=== PATIENT | male | born 1955 | race Caucasian/White ===

== ENCOUNTER 2021-07-17 05:48 | Inpatient (IN) | payer MEDICARE, SELFPAY ==
[2021-07-16 16:06] VITALS: BMI 33.6
[2021-07-17] VITALS (40 sets, daily range): BP systolic 125–168; BP diastolic 74–112; PULSE 90–129; RESP 10–21; TEMP 36.3–37.4; O2SAT 89–96; BMI 33.6
[2021-07-17] MEDS: sodium chloride 0.9% 1,000 ML 30 ML IV (06:30)
--- NOTE | 2021-07-17 06:44 | W.PM.OPSUD ---
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
[2021-07-17] MEDS: midazolam 1 mg/mL INJ 2 mL 2 MG IVP (06:58)
--- NOTE | 2021-07-17 07:44 | ANES.PREANE2 ---
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 Proposed Procedure: Operation Date: 07/17/21 07:00 Proposed Procedures p Neck Dissection [id number] C02.8(Right) - Mateo Ba MD s Direct Laryngoscopy w/ biopsy(Right) - Mateo Ba MD Was Beta Maris taken within 24 hours: N/A Was Clonidine taken within 24 hours: N/A Last intake: Intake Last Liquid Date 07/16/21 Last Liquid Time 19:00 Last Solid Date 07/16/21 Last Solid Time 16:00 Social: Social History: No alcohol and No tobacco Exam: Pre-Anes Outpt Exam: alert, oriented x 3, clear to auscultation bilaterally and regular rate & rhythm Airway: Submandibular: WNL Cervical ROM: WNL MP: 2 Dentition: Full CV/HEM: CV/HEM: CHF and HTN Metabolic: Metabolic: Hyperlipidemia and Morbid obesity Neuropsych: Neuropsych: Anxiety and Depression Anesthetic Plan: ASA status: 3 Anesthesia: General Risk of > 500 ml blood loss (7ml/kg in children): No Meds/Allergies Current Medications: Current Medications Generic Name Dose Route Start Last Admin Trade Name Freq PRN Reason Stop Dose Admin Sodium Chloride 1,000 mls @ 30 ml s/hr 07/17/21 06:00 07/17/21 06:30 Sodium Chloride 0.9% IV 07/18/21 05:59 30 mls/hr .Q24H JESSE Administration Midazolam HCl 2 mg 07/17/21 06:00 07/17/21 06:58 Midazolam 1 Mg/M l Inj 2 Ml IVP 1 mg Q5M PRN Administration Preop Anxiety PFSH Anesthesia PFSH: Medical History CHF (congestive heart failure) HTN (hypertension), benign Hyperlipidemia Leg swelling Seasonal allergies Surgical History S/P shoulder hemiarthroplasty Family History Other CHF (congestive heart failure) Diabetes Stroke Social History Smoking and tobacco status: never smoked Alcohol intake: current Alcohol intake frequency: holidays/special occasions only Data Anesthesia Cardiac Studies: No Data to Display
[2021-07-17] MEDS: clindamycin 600 MG/50 ML PREMIX 100 MG IV ×2 (07:52→18:36)
[2021-07-17] MEDS: EPINEPHrine 1 mg/mL INJ XX (08:32)
[2021-07-17] MEDS: ceFAZolin 1,000 mg SDV 1000 MG IRRIGATION (09:04)
--- NOTE | 2021-07-17 09:05 | SUR.OPER ---
[id number] pt family (yuri) notified of surgery progress
[2021-07-17] MEDS: thrombin 5,000 unit SDV 5000 UNIT XX (10:23)
[2021-07-17] MEDS: neomycin-poly-bacitracin oint 28 gm 1 APPLIC TOPICAL (10:24)
--- NOTE | 2021-07-17 11:24 | SUR.OPER ---
[id number] attempted to contact family, unable to reach
--- NOTE | 2021-07-17 12:19 | P.PCN_ITS ---
PACU note PACU note: VSS, Good respiratory effort, report to COMPUTER CUSTOMER SUPPORT SPECIALIST Post-Anesthesia Exam: awake
--- NOTE | 2021-07-17 12:19 | PM.PACU ---
PACU note PACU note: VSS, Good respiratory effort, report to AREA ATTENDANT Post-Anesthesia Exam: awake
--- NOTE | 2021-07-17 12:22 | P.OP_ITS ---
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 Post-op diagnosis: same Post-op Findings: Exophytic mass of the right mobile tongue Procedure Done: Wide local excision of right mobile tongue lesion Right supraomohyoid neck dissection Direct Laryngoscopy Implants: None Specimens removed/disposition: Right mobile tongue lesion with margins Right neck contents Pathology: Right mobile tongue mass with margins Right neck contents Surgeon: Mateo Ba Contract Administration Specialist: Jenny Newton Anesthesia: General Estimated blood loss (mL): 200 IV fluids (mL): 1,500 Urine output (mL): 300 Complications: None Findings: 2.5 X 2 cm right mobile tongue mass with 4X6 cm final surgical defect Normal right neck findings Condition: stable Disposition: PACU Brief History: 66 yo wm with a h/o a T2 N0 M0 squamous cell carcinoma of the right mobile tongue who desires surgical therapy. Procedure: The patient was identified in the preoperative holding area and was taken to the operating room where he was placed on the operating table in the supine position. Anesthesia was obtained with general endotracheal anesthesia and the table was then turned 180 degrees. The surgical laryngoscope was then advanced on the right oral cavity gutter and under direct vision a systematic inspection was carried out of the patient's oral cavity, oropharynx, hypopharynx, and larynx with no abnormalities identified except as noted above. A bimanual exam was then performed with no other abnormalities noted except as noted above. At this point the laryngoscope was removed and a Denhart retractor was placed in the patient's oral cavity and a sharp towel clamp was placed in the midline of the anterior tongue and was used to retract the tongue to the patient's left exposing the right tongue to the operating surgeon. The right tongue lesion was then excised with a 1 cm margin of normal tissue surrounding the mass with a needlepoint Bovie. Once the right tongue mass was excised, hemostasis was achieved with electrocautery. Margins were taken around the surgical defect thus created and were sent for frozen section analysis which came back as no evidence of malignancy. At this point the area was packed with antibiotic soaked gauze and the patient was then prepped and draped in the usual sterile fashion. The Nirvana nerve monitoring system was placed on the patient's facial nerve and a hockey-stick incision was drawn out on the patient's right neck. The incision was injected local anesthesia and 10 minutes were allowed to pass. The incision was then made in the patient's right neck with a 15 blade and the dissection was carried down to a subplatysmal plane with electrocautery. Subplatysmal flaps were raised superiorly and inferiorly. The dissection proceeded down to the digastric muscle which was then skeletonized with blunt dissection and bipolar cautery. The marginal mandibular nerve was identified and preserved in situ. The right submandibular gland was identified and was then dissected free from the submandibular triangle using blunt dissection and the Nirvana nerve monitoring hemostat and bipolar cautery. The hypoglossal nerve and lingual nerves were identified and preserved in place. Once the submandibular gland was excised the perivascular nodes were removed as well and were sent with the specimen. At this point the dissection proceeded along the anterior border of the sternocleidomastoid muscle which had been previously exposed. The spinal accessory nerve was identified and dissected free - the level 2A and 2B lymph nodes were then dissected free from the surro unding tissues with careful attention to preserving the spinal accessory nerve and the internal jugular vein. The dissection then proceeded to the hypoglossal nerve which was dissected free from the surrounding tissues. The lymph node packet in the area was dissected free from the internal jugular vein and the carotid artery preserving them in place. At this point the dissection proceeded down into the area lateral to the internal jugular vein. This dissection proceeded down along the anterior border of the sternocleidomastoid muscle until the cervical rootlets were identified. The dissection then proceeded anteriorly down to the omohyoid muscle and and was then redirected anteriorly bringing the lymph nodes anteriorly up and over the internal jugular vein. The ansa cervicalis was identified preserved in place. The dissection then proceeded anteriorly removing all lymph nodes in the supraomohyoid space. At this point once the all the lymph nodes were removed, the wound was inspected for hemostasis which was achieved with bipolar cautery. At this point Gelfoam soaked in thrombin was placed in the in the wound as were a round Trevor drain and a flat NIDIA drain. Once the drains were in place and hemostasis had been achieved the wound was closed with interrupted 4-0 Monocryl sutures subcu and a running fast-absorbing gut on the skin. The wound was then cleaned and covered with triple antibiotic ointment. At this point attention was returned to the mouth which was retracted open with a Denhart retractor. The tongue was then retracted again again to the left and the wound the tongue wound was closed with interrupted and running 3-0 Vicryl sutures. Once the wound and the on the tongue wound was closed. The oral cavity was irrigated with a copious amount normal saline and the wound was inspected hemostasis which found to be adequate. Once this was accomplished the retractor was removed from the patient and control of the patient was returned to anesthesia where he underwent an uneventful reversal of anesthesia and extubation and was taken to the recovery room in stable condition. There were no operative or anesthetic complications.
[2021-07-17] MEDS: fentaNYL 50 mcg/mL INJ 2mL IVP ×2 (12:26→12:35)
[2021-07-17] MEDS: HYDROmorphone 1 mg/mL INJ 1 mL 0.5 MG IVP ×6 (13:01→16:25)
[2021-07-17] MEDS: morphine 4 mg/mL SDV 1 mL 2 MG IVP ×3 (13:51→20:53)
--- NOTE | 2021-07-17 14:43 | ANE.PACU2 ---
Inpatient post-anesthesia follow up: Airway intact: Yes Vital signs: Temperature 98.7 F Pulse Rate 102 Respiratory Rate 17 Blood Pressure 150/96 Pulse Oximetry 95 Oxygen Delivery Me thod Nasal Cannula Oxygen Flow Rate 2 Fraction of Inspir ed Oxygen Hydration adequate: Yes Nausea and vomiting: No Pain level: 3 Mental status: Baseline
--- NOTE | 2021-07-17 14:44 | PC.NURSE ---
Patient stated that he was feeling a lot better and declined anymore pain medication at this time.
--- NOTE | 2021-07-17 15:56 | PC.NURSE ---
Report given to PRANEETH Cooper.
--- NOTE | 2021-07-17 17:31 | P.PN_ITS ---
Subjective Subjective: Interval history: 66 yo wm who is night of surgery s/p WLE of a right tongue T2 N0 M0 SCCA with right supraomohyoid neck dissection. The patient reports that he is doing well, and has no c/o. He has been able to drink water without difficulty since surgery. The patient has moderate pain that seems to be well controlled at the present time. Vitals/I&O/Wt Last Vital Signs Temp 99.4 F 07/17/21 17:15 Pulse 104 H 07/17/21 17:15 Resp 17 07/17/21 17:15 BP 141/94 07/17/21 17:15 Pulse Ox 94 07/17/21 17:15 07/17/21 07/17/21 07/17/21 06:59 14:59 22:59 Intake Total 550 / 550 280 / 830 Output Total 800 / 800 Balance -250 / -250 280 / 30 Weight last 48 hrs Weight 112.491 kg Physical Exam Const: COMMON NORMALS: no acute distress and patient oriented x3 HENMT: COMMON NORMALS: normocephalic, atraumatic, external ears normal and Normal external nose present HEAD & SCALP: normocephalic and atraumatic FACE & SINUS: normal facial exam NOSE: Normal external nose present EXTERNAL EAR: Yes external ears normal TEETH & GINGIVA: Yes poor dentition and Yes other (The right tongue wound is intact and the patient's tongue is mobile.) Eye: COMMON NORMALS: EOMs intact bilaterally, conjunctivae normal and no scleral icterus CONJUNCTIVA: Yes conjunctivae normal Neck/C-Spine: COMMON NORMALS: no lymphadenopathy and supple GENERAL: Yes other (The patient's right neck wound is clean, intact, and without swelling.) Chest: COMMONS NORMALS: normal inspection of the chest and normal palpation of entire chest wall Resp: COMMON NORMALS: normal respiratory effort and clear to auscultation bilaterally AUSCULTATION: clear to auscultation bilaterally Cardio: COMMON NORMALS: regular rate, regular rhythm and No murmurs present (Cardio) RATE: regular rate RHYTHM: regular rhythm GI: COMMON NORMALS: Normal to inspection, nondistended, normoactive bowel sounds present and Soft to palpation PALPATION: Yes Soft to palpation Extremity: COMMON NORMALS: normal to inspection and full ROM Neuro: COMMON NORMALS: patient oriented x3, CN's II-XII intact bilaterally and moves all extremities Psych: COMMON NORMALS: mental status grossly normal and Normal thought process present THOUGHT PROCESS: Normal thought process present Urinary Catheter Management^: Pakrer: Cath Placed During This Visit: yes, but has since been removed by the nurse Urinary Catheter Date of Insertion: 07/17/21 Urinary Catheter Time of Insertion: 07:45 Date Urinary Catheter Removed: 07/17/21 Time Urinary Catheter Discontinued: 13:00 A&P Additional A&P Information Impression: 66 yo wm who is night of surgery s/p WLE and right SOHND for a T2 N0 M0 SCCA of the right tongue - the patient is doing well and is able to swallow water. Plan: - Pain control - Post op prophylactic antibiotics - Advance diet tomorrow - Continue closed suction drainage - SCDs - Anticipate d/c in 1-2 days - the patient must be able to take food and liquids by mouth prior to d/c Attestations Medical Necessity Statement*: The patient requires inpatient care until he is able to eat well. Coding Level of Care Code Acute Lead Enterprise Architect for Aster Woodard
[2021-07-17] MEDS: famotidine 20 mg/2 mL INJ IVP (18:36)
[2021-07-17] MEDS: docusate sodium 100 mg Capsule PO (18:36)
[2021-07-17] MEDS: FUROsemide 40 mg Tablet PO (18:37)
[2021-07-17] MEDS: lactated ringers 1,000 ML 125 ML IV (18:37)
[2021-07-17] MEDS: HYDROcodone-acetaminophen 5-325 mg Tablet 1 TAB PO (18:48)
[2021-07-17] MEDS: bacitracin ointment 28 gm TOPICAL (20:46)
[2021-07-17] MEDS: gabapentin 300 mg Capsule 600 MG PO (20:47)
[2021-07-17] MEDS: diphenhydrAMINE 50 mg/mL SDV 1mL 12.5 MG IVP (22:23)
[2021-07-18] VITALS (7 sets, daily range): BP systolic 123–161; BP diastolic 70–97; PULSE 75–94; RESP 16–19; TEMP 36.5–37.2; O2SAT 91–98
[2021-07-18] MEDS: HYDROcodone-acetaminophen 5-325 mg Tablet 1 TAB PO ×3 (01:54→15:34)
[2021-07-18] MEDS: clindamycin 600 MG/50 ML PREMIX 100 MG IV (01:54)
[2021-07-18] MEDS: lactated ringers 1,000 ML 125 ML IV (01:54)
--- NOTE | 2021-07-18 04:17 | PC.NURSE ---
Dr Ba rounded at this time. verbal orders for pt to have patricia drains x2 connected back to compressed bulb suction and taken off continuous wall suctions.
--- NOTE | 2021-07-18 04:35 | PM.PN ---
Subjective Subjective: Interval history: 66 yo wm who is POD #1 s/p Wide Local Excision (WLE) with Right neck supraomohyoid neck dissection (SOHND) for a T2 N0 M0 SCCA of the right mobile tongue. The patient reports that he is having some pain, but it is well controlled with his current pain regimen. He has been able to swallow water without difficulty and is o/w without c/o. Vitals/I&O/Wt Last Vital Signs Temp 97.7 F 07/18/21 04:14 Pulse 94 07/18/21 04:14 Resp 19 H 07/18/21 04:14 BP 123/83 07/18/21 04:14 Pulse Ox 93 07/18/21 04:14 07/17/21 07/17/21 07/18/21 14:59 22:59 06:59 Intake Total 550 / 550 330 / 880 1440.417 / 2320.417 Output Total 800 / 800 500 / 1300 1000 / 2300 Balance -250 / -250 -170 / -420 440.417 / 20.417 Weight last 48 hrs Weight 112.491 kg Weight 112.491 kg Physical Exam Const: COMMON NORMALS: no acute distress, patient oriented x3, healthy appearing and alert HENMT: COMMON NORMALS: normocephalic, atraumatic, external ears normal and Normal external nose present HEAD & SCALP: normocephalic and atraumatic FACE & SINUS: normal facial exam NOSE: Normal external nose present EXTERNAL EAR: Yes external ears normal TEETH & GINGIVA: Yes other (The patient's tongue wound is intact.) Eye: COMMON NORMALS: Equal, round and reactive pupils present, EOMs intact bilaterally and no scleral icterus PUPIL: Yes Equal, round and reactive pupils present Neck/C-Spine: COMMON NORMALS: full ROM and no lymphadenopathy GENERAL: Yes other (The right neck wound is intact without swelling or erythema.) Resp: COMMON NORMALS: normal respiratory effort and clear to auscultation bilaterally AUSCULTATION: clear to auscultation bilaterally Cardio: COMMON NORMALS: regular rate, regular rhythm and No murmurs present (Cardio) RATE: regular rate RHYTHM: regular rhythm GI: COMMON NORMALS: Normal to inspection, nondistended, normoactive bowel sounds present and Soft to palpation PALPATION: Yes Soft to palpation Extremity: COMMON NORMALS: normal to inspection Neuro: COMMON NORMALS: patient oriented x3 and CN's II-XII intact bilaterally SENSORIUM/ORIENTATION: Yes alert Psych: COMMON NORMALS: mental status grossly normal Urinary Catheter Management^: Parker: Cath Placed During This Visit: yes, but has since been removed by the nurse Urinary Catheter Date of Insertion: 07/17/21 Urinary Catheter Time of Insertion: 07:45 Date Urinary Catheter Removed: 07/17/21 Time Urinary Catheter Discontinued: 13:00 A&P Additional A&P Information Impression: 66 yo wm with a h/o a T2 N0 M0 SCCA of the right mobile tongue who is doing well s/p WLE with SOHND Plan: - Advance diet - Ambulate TID - Convert drains to bulb suction - Pain control - Anticipate d/c today or tomorrow depending on the above Attestations Medical Necessity Statement*: The patient requires inpatient care until he able to eat by mouth Coding Level of Care Code Acute Order To Delivery Supervisor for Aster Woodard
--- NOTE | 2021-07-18 04:56 | PC.NURSE ---
pt ambulated 975 ft total with SB assistance after Dr. Ba rounded. pt tolerated well.
[2021-07-18] MEDS: morphine 4 mg/mL SDV 1 mL 2 MG IVP (05:50)
[2021-07-18] MEDS: famotidine 20 mg/2 mL INJ IVP (06:06)
[2021-07-18] MEDS: docusate sodium 100 mg Capsule PO ×2 (09:03→18:10)
[2021-07-18] MEDS: atorvastatin 40 mg Tablet 20 MG PO (09:03)
[2021-07-18] MEDS: losartan 50 mg Tablet PO (09:03)
[2021-07-18] MEDS: gabapentin 300 mg Capsule 600 MG PO ×2 (09:04→15:34)
[2021-07-18] MEDS: fluoxetine 20 mg Capsule 40 MG PO (09:04)
[2021-07-18] MEDS: spironolactone 25 mg Tablet PO (09:04)
[2021-07-18] MEDS: bacitracin ointment 28 gm TOPICAL ×2 (09:21→15:39)
--- NOTE | 2021-07-18 09:22 | PC.CHAP ---
Pastoral Care Encounter/Spiritual Assessment Type of Contact [] Declined strip machine tender visit [] Patient/Family/Request visit [] Outpatient visit [] Follow-up visit [] Physician referral [] Code/Alert [x] Routine visit [] Staff referral [] Actively dying [] Patient sleeping [] Family support [] [] Out of room [] Palliative care [] [] Receiving care in room [] Pre-surgical visit [] Trauma [] Long length of stay [] ICU visit [] Other: Relational/Emotional Strength [] Patient feels connected with others/family/visitors/staff [] Distress [] Loneliness/isolation [] Abandonment Spirituality of Patient [x] Person of [place] [] Attends Catholic of their [place] [x] Believes in Prayer [] Reads Bible or Buddhism materials [] There are Spiritual issues to be addressed Lodge Sales Associate Interventions [] Prayer [] Active listening [] Non-anxious presence [] Spiritual/emotional support [] Crisis/trauma care [] Spiritual counseling [] Bereavement support [] Provided bereavement packet [] Provided Bible/devotional materials [] Provided toy/stuffed animal, coloring book to patient or family member [] Provided Communion [] Anointing/[place] [] Salvation [xx] Completed spiritual assessment [] Other: Impact on Illness or Injury [] Angry [] Fearful [] Anxious [] Often cries [] Exhaustion [] Unable to work [] Unable to attend cheondoism [] Unable to walk/stand [] Unable to read [] Unable to drive [] Unable to eat/drink [] Unable to sleep [] Unable to be with family [] Patient intubated [] Other: Summary Time spent with patient 5 min
--- NOTE | 2021-07-18 17:15 | PM.PN ---
Subjective Subjective: Interval history: 66 yo wm with a h/o a T2 N0 M0 SCCA of the right mobile tongue who is POD #1 s/p WLE of the tongue lesion with SOHND. The patient reports that he has been able to eat solid food today without difficulty, has ambulated, and has had normal bowel/bladder habits. He is o/w without c/o. Vitals/I&O/Wt Last Vital Signs Temp 98.1 F 07/18/21 15:30 Pulse 75 07/18/21 15:30 Resp 18 07/18/21 15:30 BP 161/97 07/18/21 15:30 Pulse Ox 98 07/18/21 15:30 07/18/21 07/18/21 07/18/21 06:59 14:59 22:59 Intake Total 1680.417 / 2560.417 1000 / 1000 Output Total 1400 / 2700 20 / 20 Balance 280.417 / -139.583 980 / 980 Weight last 48 hrs Weight 112.491 kg Physical Exam Const: COMMON NORMALS: no acute distress and patient oriented x3 HENMT: COMMON NORMALS: hearing grossly normal bilaterally, external ears normal and Normal external nose present NOSE: Normal external nose present EXTERNAL EAR: Yes external ears normal MOUTH: tongue abnormal (The right tongue wound is intact.) Eye: COMMON NORMALS: EOMs intact bilaterally and conjunctivae normal CONJUNCTIVA: Yes conjunctivae normal Neck/C-Spine: COMMON NORMALS: no lymphadenopathy and supple GENERAL: Yes other (The right neck wound is intact without swelling or erythema) Chest: COMMONS NORMALS: normal inspection of the chest and normal palpation of entire chest wall Resp: COMMON NORMALS: normal respiratory effort, No use of accessory muscles and clear to auscultation bilaterally AUSCULTATION: clear to auscultation bilaterally Cardio: COMMON NORMALS: regular rate, regular rhythm and No murmurs present (Cardio) RATE: regular rate RHYTHM: regular rhythm Extremity: COMMON NORMALS: normal to inspection Neuro: COMMON NORMALS: patient oriented x3 Urinary Catheter Management^: Parker: Cath Placed During This Visit: yes, but has since been removed by the nurse Urinary Catheter Date of Insertion: 07/17/21 Urinary Catheter Time of Insertion: 07:45 Date Urinary Catheter Removed: 07/17/21 Time Urinary Catheter Discontinued: 13:00 A&P Additional A&P Information Impression: 66 yo wm who is POD #1 s/p WLE of a T2 SCCA of the right mobile tongue with Right SOHND who is doing well. Plan: - Regular diet as tolerated - [place] (5/325) tabs: take 1-2 tabs po Q5 hours prn pain, #25, NR - Doxycycline (100mg) tabs: take 1 tab po BID x 10 days, #20, NR - Resume all preop medications - F/U in Dr. Ba's office on 07/23/21 @ 13:00 and prn - We will leave the NIDIA drains in place - patient was instructed in their use - Apply triple antibiotic ointment to the right neck wound TID - Notify Dr. Ba for any problems Attestations Medical Necessity Statement*: The patient required inpatient care until he was able to take po well Coding Level of Care Code Acute Marble And Granite Polisher for Aster Woodard
--- NOTE | 2021-07-18 17:22 | PM.DCS ---
Discharge Providers Date of Admission: 07/17/21 05:48 Date of Discharge: July 18, 2021 Attending Provider at Admission: Mateo Ba MD Attending Provider at Discharge: Mateo Ba MD Primary Care Provider: Servando Weinstein Diagnoses at Discharge Other Information Additional DC diagnoses/information: Squamous Cell Carcinoma of the Right mobile tongue Reason for Visit Reason for Visit: Malignant Neoplasm of overlapping sites Brief History: 66 yo wm with a h/o a T2 N0 M0 SCCA of the right mobile tongue who presents for surgical therapy. Hospital Course Hospital Course The patient underwent wide local excision of the right mobile tongue SCCA with Right supraomohyoid neck dissection on the day of admission. The patient was admitted to the floor on the evening of surgery. The patient was able to tolerate oral fluids on the first postoperative day. The patient was able to advance to a regular diet on POD #1 and was able to ambulate well today. The patient was also able to urinate without difficulty. The patient was instructed in NIDIA drain and wound care on the evening of the first post operative day and was discharged in stable condition. Physical Exam Narrative: EXAM NARRATIVE: See the SOAP note from this afternoon Urinary Catheter Management^: Parker: Cath Placed During This Visit: yes, but has since been removed by the nurse Urinary Catheter Date of Insertion: 07/17/21 Urinary Catheter Time of Insertion: 07:45 Date Urinary Catheter Removed: 07/17/21 Time Urinary Catheter Discontinued: 13:00 Discharge Data Data Completed and Pending: Pending at discharge Category Date Time Status Pathology: Surgic al [PTH] Routine Pth 07/17/21 12:19 Received Vitals: Last Vital Signs Temp 98.1 F 07/18/21 15:30 Pulse 75 07/18/21 15:30 Resp 18 07/18/21 15:30 BP 161/97 07/18/21 15:30 Pulse Ox 98 07/18/21 15:30 Discharge Plan Discharge Patient Disposition: Home Condition: Stable Prescriptions: New doxycycline hyclate 100 mg capsule 100 mg PO BID 10 Days Qty: 20 RF: 0 Continued tizanidine 4 mg capsule 4 mg PO TID PRN (Reason: Sleep) RF: 0 gabapentin 600 mg tablet 600 mg PO TID RF: 0 ibuprofen [Advil] 200 mg tablet 200 mg PO Q6H PRN (Reason: Sleep) RF: 0 fluoxetine 40 mg capsule 40 mg PO DAILY RF: 0 furosemide [Lasix] 40 mg tablet 40 mg PO BID 30 Days Qty: 60 RF: 5 irbesartan [Avapro] 150 mg tablet 150 mg PO DAILY Qty: 90 RF: 3 spironolactone 25 mg tablet See Rx Instructions .ROUTE .COMPLEX Qty: 90 RF: 2 rosuvastatin [Crestor] 10 mg tablet 10 mg PO DAILY Qty: 90 RF: 3 hydrocodone-acetaminophen 5-325 mg tablet 1 tab PO QID PRN (Reason: Pain) RF: 0 Discharge Orders: Discharge Order (Routine); Ordered 07/18/21 Ordered By: Mateo Ba Referrals: Mateo Ba MD [Physician] - 07/23/21 8:40 am Discharge Diet: Advance as tolerated Discharge Activity: Increase activity as tolerated Patient Instructions: Opioid Safety Activity Restrictions/Additional Instructions: 1) Apply triple antibiotic ointment to the right neck wound TID 2) Take home pain meds 3) Take Doxycycline as prescribed 4) Manage drains as instructed 5) Contact Dr. Ba for any problems 6) F/U in Dr. Ba's office on 07/23/21 @ 13:00 Discharge Attestations Time Spent in Discharge Care*: greater than 30 min Quality Metrics Clinical Quality Measures During this hospital stay, did patient experience: None Coding Level of Care Code Acute Jojo BHARGAV DAWKINS note
== END 2021-07-18 18:29 | disposition home or self-care (01) | DRG 142 ==
LOC: OR 05:50 → MEDSURG 16:03
PROVIDERS: Admitting Provider Specialist; Family Provider Nurse Practitioner Family; PCP Family Medicine; Visit Provider Specialist
PROC: 0CB7XZZ Excision of Tongue, External Approach (ICD-10-PCS; principal; 2021-07-17 07:00)
PROC: 0CJS8ZZ Inspection of Larynx, Via Natural or Artificial Opening Endoscopic (ICD-10-PCS; 2021-07-17 07:00)
DX: C02.3 Malignant neoplasm of anterior two-thirds of tongue, part unspecified (principal); I11.0 Hypertensive heart disease with heart failure; I50.9 Heart failure, unspecified; F41.8 Other specified anxiety disorders; E78.5 Hyperlipidemia, unspecified; E66.01 Morbid (severe) obesity due to excess calories; Z68.33 Body mass index [BMI] 33.0-33.9, adult; Z79.891 Long term (current) use of opiate analgesic
CPT/HCPCS: 12345; 88309; 88331; 94664; 96365; J0171; J0690; J1100; J1170; J1200; J2250; J2270; J2704; J2710; J3010; J3490; J7030

== ENCOUNTER → 2022-05-27 14:04 | Outpatient (BNVA) | payer MEDICARE, SELFPAY | PROVIDERS: PCP Family Medicine; Visit Provider Internal Medicine Cardiovascular Disease | DX: I11.0 Hypertensive heart disease with heart failure (principal); I50.33 Acute on chronic diastolic (congestive) heart failure; E78.2 Mixed hyperlipidemia | CPT/HCPCS: 99214 ==

== ENCOUNTER → 2022-11-11 15:11 | Outpatient (BNVA) | payer MEDICARE, SELFPAY | PROVIDERS: PCP Family Medicine; Visit Provider Internal Medicine Cardiovascular Disease | DX: I11.0 Hypertensive heart disease with heart failure (principal); I50.33 Acute on chronic diastolic (congestive) heart failure; M79.89 Other specified soft tissue disorders; E78.2 Mixed hyperlipidemia | CPT/HCPCS: 99214 ==

== ENCOUNTER → 2023-11-10 10:47 | Outpatient (BNVA) | payer MEDICARE, SELFPAY | PROVIDERS: PCP Family Medicine; Visit Provider Internal Medicine Cardiovascular Disease | DX: R06.02 Shortness of breath (principal); I10 Essential (primary) hypertension | CPT/HCPCS: 36415; 80048; 83880; 99214 ==

== ENCOUNTER → 2024-05-11 10:47 | Outpatient (BNVA) | payer MEDICARE, SELFPAY | PROVIDERS: PCP Family Medicine; Visit Provider Nurse Practitioner Family | DX: I10 Essential (primary) hypertension (principal) | CPT/HCPCS: 99213 ==

== ENCOUNTER → 2024-11-16 10:06 | Outpatient (BNVA) | payer MEDICARE, SELFPAY | PROVIDERS: PCP Family Medicine; Visit Provider Internal Medicine Cardiovascular Disease | DX: I11.0 Hypertensive heart disease with heart failure (principal); I50.33 Acute on chronic diastolic (congestive) heart failure; I95.1 Orthostatic hypotension; E78.2 Mixed hyperlipidemia | CPT/HCPCS: 99214 ==

== ENCOUNTER → 2025-05-03 14:31 | Outpatient (BNVA) | payer MEDICARE, SELFPAY | PROVIDERS: PCP Family Medicine; Visit Provider Internal Medicine Cardiovascular Disease | DX: M79.10 Myalgia, unspecified site (principal); I11.0 Hypertensive heart disease with heart failure; I50.33 Acute on chronic diastolic (congestive) heart failure; E78.2 Mixed hyperlipidemia | CPT/HCPCS: 99214 ==